=== PATIENT | female | born 1960 | race Caucasian/White ===

== ENCOUNTER → 2021-03-23 15:30 | Outpatient (CLI) | payer OTHER, SELFPAY ==
--- NOTE | 2021-03-23 15:54 | ECG_ITS ---
APPROVED REPORT Exam: Resting ECG HR:66 bpm ECG Measurements Heart Rate 66 AXES AZ 154 P 31 QRSd 80 QRS -5 QT 416 T 24 QTc 436 Conclusion Normal sinus rhythm Minimal voltage criteria for LVH, may be normal variant Borderline ECG Electronically signed by : Nico Morgan MD 03/24/2021 21:18:24
[2021-03-23 16:23] LABS: Basophils # 0.1 K/mm3 (0-0.2); Basophils % 1.4 % (0.1-2.0); Eosinophils # 0.2 K/mm3 (0.0-0.4); Eosinophils % 2.3 % (0.1-12.0); Hematocrit 42.5 % (37.0-47.0); Hemoglobin 14.2 g/dL (12.2-16.2); Lymphocytes # 2.8 K/mm3 (0.7-4.5); Lymphocytes % 27.5 % (10-50); Mean Corpuscular HGB Conc 33.4 g/dL (31.8-35.4); Mean Platelet Volume 9.2 fl (7.4-10.4); Monocytes # 0.5 K/mm3 (0.1-1.0); Monocytes % 5.2 % (1.7-9.3); Neutrophils # 6.6 K/mm3 (1.8-7.8); Neutrophils % 63.6 % (37.0-80.0); Platelet Count 292 K/mm3 (142-424); Red Blood Count 4.43 M/mm3 (4.20-5.40); Red Cell Distribution Width 13.7 % (11.5-17.5); White Blood Count 10.3 K/mm3 (4.8-10.8)
== END ==
PROVIDERS: Visit Provider Otolaryngology
DX: Z01.812 Encounter for preprocedural laboratory examination (principal); Z11.52 Encounter for screening for COVID-19; U07.1 COVID-19; L98.9 Disorder of the skin and subcutaneous tissue, unspecified; K13.0 Diseases of lips
CPT/HCPCS: 36415; 85025; 93005; C9803; U0003; U0005

== ENCOUNTER 2021-04-22 06:46 | Day surgery (SDC) | payer OTHER, SELFPAY ==
[2021-04-19 11:16] VITALS: BMI 29.1
[2021-04-22 07:13] VITALS: BP 164/78; PULSE 60; RESP 18; TEMP 36.5; O2SAT 97
--- NOTE | 2021-04-22 08:08 | HMH.ANESCL ---
[facility] Anesthesia Checklist - Patient Identification Patient Identification: Arm Band - Structural Data Admitted From: Home Planned Operative Procedure/s: Excision Lower Lip Lesion Consent for Planned Operative Procedure(s) Verified: Yes Verified Documents: Surgical Consent, History and Physical - NPO Status Verified Time NPO: 00:00 - Additional verifications Anesthesia Reactions: No Hx Blood Transfusions: No Blood Transfusion Reaction: No - Airway Assessment C-Spine Mobility Assessed: Yes (mp2) TMJ Mobility Assessed: Yes Dentition: Good Dentition - Neurological Assessment Level of Consciousness: Awake, Alert - Anesthesia Plan Anesthesia Risk discussed: Yes Anesthesia Plan: Verified ASA Class: II Anesthesia Type: MAC [facility] History I have reviewed the patient's past medical history: Yes Medical History: Reports:: Anxiety, Hypertension Denies:: Cancer, Diabetes Mellitus Type 1, Diabetes Mellitus Type 2, Internal Pacemaker, MRSA, Seizures *Have you ever received a pneumonia vaccine?: No *Have you received a flu vaccine this season?: No Other Medical History: Denies: Blood Transfusion Reaction Anesthesia experience/problems:: nac Other Surgeries: Yes: Other. No: Pacemaker Amputation: No Fractures: No - *Social History Last grade of school completed: Advanced degree Smoking Status: Current every day smoker Tobacco Type: cigarettes # Packs/Day (cigarettes): 1 Alcohol Intake: current Alcohol Intake Frequency:: holidays/special occasions only Substance Use Type: denies use *Occupational Status:: employed Housing: house Household Members: none *Travel in the last 8 weeks: None - Psychiatric History Pschychiatric History:: Reports:: Anxiety Family Hx:: Diabetes, Heart Attack
[2021-04-22 09:02] VITALS: BP 165/76; PULSE 66; RESP 18; TEMP 36.3; O2SAT 96
[2021-04-22 09:32] VITALS: BP 156/84; PULSE 56; RESP 18; O2SAT 97
--- NOTE | 2021-04-22 10:36 | HMH.OPNOTE ---
Date of procedure: 04/22/21 Pre-op Diagnosis:: Nonhealing lesion right side of lower lip 2.2 cm Post-op Diagnosis:: 1. Nonhealing lesion right side of lower lip 2.2 cm 2. Malignant neoplasm lower lip right side 2.2 cm Procedure performed:: Excision of malignant neoplasm right side lower lip 2.2 cm with tissue rearrangement Z-plasty repair Surgeon:: Layton Carmen MD BESSEMER CONVERTER OPERATOR:: Wai Patel Anesthesia: MAC Estimated blood loss (mL): 3 Operative findings:: same Operative note:: With the patient under a MAC type of anesthetic the eyes were protected with Steri-Strips and the face was prepped and draped. The lesion was on the right side of the lower lip and the perilesional area was infiltrated with a total of 4 cc of 2% lidocaine containing epinephrine. The lesion was marked out and the radha out measured 2.2 cm in length the markup was incised skin hooks were placed on each side of the radha out and the lesion was mobilized and excised in entirety. It was then submitted for frozen section analysis and reported as a squamous cell carcinoma with clear margins. Bleeding was 3 cc and was stopped with suction cautery. Superior and lateral incisions were made flaps were elevated and a tissue rearrangement Z-plasty repair was done with interrupted 2-0 nylon sutures after Surgicel snow had been placed in the defect and all of the bleeding had been stopped. An excellent repair was obtained. Dermabond was placed on the suture line and a dot dressing was applied the patient tolerated the procedure well and was sent to recovery in good general condition. Condition: stable Disposition: PACU Complications:: none
== END 2021-04-22 09:32 | disposition home or self-care (01) ==
LOC: OR 06:49
PROVIDERS: PCP Family Medicine; Visit Provider Otolaryngology
PROC: (CPT 14060; principal; 2021-04-22 08:15)
DX: C00.1 Malignant neoplasm of external lower lip (principal); I10 Essential (primary) hypertension
CPT/HCPCS: 14060; 96374; 96375

== ENCOUNTER → 2022-03-17 07:06 | Outpatient (CLI) | payer OTHER, SELFPAY ==
[2022-03-17 07:59] LABS: Chloride 105 mmol/L (98-107); Potassium 4.6 mmoL/L (3.5-5.1); Sodium 142 mmol/L (136-145)
[2022-03-17 08:02] LABS: Alanine Aminotransferase 21 U/L (12-78); Albumin Level 4.2 g/dl (3.5-5.0); Albumin/Globulin Ratio 1.4 (1.1-1.8); Alkaline Phosphatase 125 U/L (38-126); Anion Gap 12.6 mEq/L (5-15); Aspartate Amino Transferase 29 U/L (14-36); Bilirubin,Total 0.5 mg/dl (0.2-1.3); Blood Urea Nitrogen 11 mg/dl (7-17); Carbon Dioxide 29 mmol/L (22.0-30.0); Cholesterol 210 mg/dl (140-200); Estimated Glomerular Filt Rate 73 ml/min (>60); GFR (African American) 88 ML/MIN (>60); Total Protein,Serum 7.2 g/dl (6.3-8.2); Triglycerides 263 mg/dl (30-150); VLDL Cholesterol 53 mg/dL (0-40)
[2022-03-17 08:03] LABS: Calcium 9.1 mg/dl (8.4-10.2); Chol/HDL Ratio 4.8 (1-3.5); Glucose 122 mg/dl (74-100); HDL Cholesterol 44 mg/dl (40-60)
[2022-03-17 08:14] LABS: Direct LDL Cholesterol 111.47 mg/dL (100-129)
== END ==
PROVIDERS: PCP Family Medicine; Visit Provider Family Medicine
DX: I10 Essential (primary) hypertension (principal); E78.5 Hyperlipidemia, unspecified
CPT/HCPCS: 36415; 80053; 80061

== ENCOUNTER 2024-09-10 10:40 | Outpatient (CLI) | payer OTHER, SELFPAY ==
--- NOTE | 2024-09-10 10:43 | XR_ITS ---
FINAL REPORT CLINICAL HISTORY: Left knee pain x 3 weeks COMPARISON: None FINDINGS: LEFT KNEE Three views demonstrate no acute fracture or dislocation. Chondrocalcinosis is noted. There is moderate joint space narrowing of the medial compartment. There is no evidence of joint effusion. No acute soft tissue abnormality is seen. IMPRESSION: Degenerative changes without acute bony abnormality. Reviewed, Interpreted and Dictated by Kostas Fam MD Transcribed by Jerrica Shepard Authenticated and [facility]
== END 2024-09-10 23:59 | disposition home or self-care (01) ==
LOC: RAD 10:42
PROVIDERS: PCP Family Medicine; Visit Provider Orthopaedic Surgery
DX: M25.562 Pain in left knee (principal)
CPT/HCPCS: 73562

== ENCOUNTER 2025-01-31 08:39 | Outpatient (CLI) | payer OTHER, SELFPAY ==
--- OUTSIDE RECORDS SUMMARY | 2024-02-15 05:30 | XMS_ITS ---
Author Organization [facility] Address [address] [facility] 36 [facility] [address] [place] [id number] Care Team Providers Care Audit Practice Intern Name Role Phone Carmelo, R Roberto Primary Care Provider Allergies No Known Allergies Results Component Value Reference Range Notes P-Comprehensive Metabolic Pa varsha (CMP) Reviewed date:02/20/2024 08:13:12 AM Interpretation: Performing Lab: Notes/Report: Test performed by [facility] [address] [place] [address] , [address], [place] [address] Andre Swartz MD, Aircraft Worker CLIA: [id number] Sodium 142 135-145 mmol/L Potassium 4.4 3.5-5.3 mmol/L Chloride 104 97-108 mmol/L CO2 27 22-32 mmol/L Glucose 104 65-99 mg/dL BUN 10 8-23 mg/dL Creatinine 0.92 0.50-1.00 mg/dL Calcium 9.4 8.6-10.4 mg/dL eGFR by Creatinine 70 >59 mL/min/1.73m2 Protein 7.2 6.0-8.3 g/dL Albumin 4.4 3.5-5.3 g/dL Alkaline Phosphatase 94 35-121 IU/L ALT (SGPT) 17 <5-47 IU/L AST (SGOT) 19 <5-40 IU/L Bilirubin, Total 0.7 <0.2-1.2 mg/dL A/G Ratio 1.6 1.1-2.5 P-Lipid Panel Reviewed date:02/20/2024 08:13:12 AM Interpretation: Performing Lab: Notes/Report: Test performed by [facility], [address] , [facility] [address], [place] [address] Andre Swartz MD, Aircraft Worker CLIA: [id number] Cholesterol 127 <200 mg/dL Triglycerides 245 <150 mg/dL HDL Cholesterol 43 >39 mg/dL Cholesterol / HDL Ratio 2.95 0.00-4.44 Ratio Non-HDL Cholesterol 84 <130 mg/dL LDL Cholesterol (Calculation) 35 <130 mg/dL LDL Cholesterol Levels* Less than 100 mg/dL Optimal 100 to 129 mg/dL Near Optimal/ Above Optimal 130 to 159 mg/dL Borderline High 160 to 189 mg/dL High 190 mg/dL and above Very High * Categories as recommended by the 2004 ATPIII guidelines LDL/HDL Ratio 0.8 <3.3 Ratio LDL Cholesterol Patient History Test Date: 02/15/2024 LDL Results: 35 Units: mg/dL % Change: - REASON FOR VISIT check up and refill, Needs labs, mammogram, bone density screening, colon cancer screening, & low dose chest CT Medications Medication SIG (Take, Route, Frequency, Duration) Notes Start Date End Date Status Furosemide 40 MG 1 tab(s) orally Two times a day; Duration: 90 days Active Atenolol 50 MG 1 tab(s) orally once a day Active Furosemide 40 MG 1 tab(s) orally Two times a day Active amLODIPine Besy-Benazepril HCl 5-40 MG 1 cap(s) Orally 02/15/2024 Active Citalopram Hydrobromide 20 MG 1 tab(s) orally once a day; Duration: 90 days Active Lisinopril 40 MG 1 tab(s) orally once a day; Duration: 90 days Active Rosuvastatin Calcium 10 mg TAKE ONE TABL ET BY MOUTH EVERY DAY; Duration: 30 Active Rosuvastatin Calcium 10 mg 1 tablet Oral ly Once a day; Duration: 90 days Active Atenolol 50 MG 1 tab(s) orally once a day; Duration: 90 days Active Ondansetron 4 MG 1 tablet on the tong ue and allow to dissolve Orally three times a day as needed 06/16/2023 Active Citalopram Hydrobromide 20 MG 1 tab(s) orally once a day Active Vital Signs Blood pressure systolic 160 mm Hg 02/15/20 24 Blood pressure diastolic 98 mm Hg 024 Heart Rate 73 /min 02/15/2024 Height 66 in 02/15/2024 Weight 197.6 lbs 02/15/2024 BMI 31.89 kg/m2 02/15/2024 Encounters Encounter [facility] Date [facility] [address] [phone] 02/15/2024 R Roberto Rhodes Hypertension I10 ; Generalized anxiety disorder F41.1 ; Dyslipidemia E78.5 and Tobacco use disorder F17.200 Assessments Encounter Date Diagnosis (ICD Code) Assessment Notes Treatment Notes Treatment Clinical Notes Section Notes 02/15/2024 Hypertension (ICD-10 - I10) Monitor blood pressure at home and report persistently elevated readings greater than 140/90 02/15/2024 Generalized anxiety disorder (ICD-10 - F41.1) 02/15/2024 Dyslipidemia (ICD-10 - E78.5) 02/15/2024 Tobacco use disorder (ICD-10 - F17.200) Plan Of Treatment Medication Medication Name Sig Start Date Stop Date Notes Lisinopril 40 MG 1 tab(s) orally once a day Atenolol 50 MG 1 tab(s) orally once a day Furosemide 40 MG 1 tab(s) orally Two times a day amLODIPine Besy-Benazepril H Cl 5-40 MG 1 cap(s) Orally 02/15/2024 Rosuvastatin Calcium 10 mg TAKE ONE TABL ET BY MOUTH EVERY DAY; Duration: 30 Citalopram Hydrobromide 20 MG 1 tab(s) orally once a day Treatment Notes Assessment Notes Hypertension Monitor blood pressu re at home and report persistently elevated readings greater than 140/90 Next Appt Details Follow Up: 6 Months, Reason: Progress Notes * Sadi FERNANDODOB:1960 (64 yo F)Acc No.[id number]:02/15/2024 Progress Notes Patient: Sadi HARDEN Provider: Raleigh Rhodes M.D. :1960 A ge:63 Y S ex:Female Date:02/15/2024 Address:[address] [place], [place] [id number] Subjective: * Chief Complaints: * 1 . Check up and refill. 2. Needs labs, mammogram, bone density screening, colon cancer screening, & low dose chest CT. * HPI: C ardiology: Pt states that she is here for a check up and states that she is doing well. Pt states that she is needing refills today on all her medications. She reports frequent elevated BP readings at [facility]. Denies : Chest Pain. D enies : Short of Breath. D enies : Dizziness. D enies : Palpitations. D enies : Leg Edema. * ROS: D ERMATOLOGY: no R joana. n o H lulu. G ASTROENTEROLOGY: no N ausea. n o V omiting. U ROLOGY: no D ifficulty urinating. n o B lood in urine. 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 * Surgical History: A ppendectomy 1984, Total Hysterectomy 1997, Cholecystectomy 1980. * Family History: F ather: alive 84 yrs, heart issues, stroke. M other: alive 83 yrs, heart issues, diabetes. 1 sister(s) . . Sister with [place]. * Social History: C URRENT TOBACCO USE S moking Status: Patient does smoke, packs per day: 1, number of cigarettes per day: 10, Since age of: 18, Smoking preference: cigarettes. C affeine: yes, frequency: coffee, tea daily. Exercise: no. Home smoke detector use: yes. Alcohol: No. * Medications: T aking Ondansetron 4 MG Tablet Disintegrating 1 tablet on the tongue and allow to dissolve Orally three times a day as needed , Taking Atenolol 50 MG Tablet 1 tab(s) orally once a day , Taking Lisinopril 40 MG Tablet 1 tab(s) orally once a day , Taking Rosuvastatin Calcium 10 mg Tablet 1 tablet Orally Once a day , Taking Citalopram Hydrobromide 20 MG Tablet 1 tab(s) orally once a day , Taking Furosemide 40 MG Tablet 1 tab(s) orally Two times a day , Medication List reviewed and reconciled with the patient * Allergies: N .K.D.A. Objective: * Vitals: W t:197.6, Temp:98.6, BP:160/98, HR:73, Nurse:VALENTIN, Ht: 66, BMI:31.89. * Examination: C ardiology: General Appearance: p leasant, NAD. . H EENT:?unremarkable. C arotid upstroke: n ormal, no bruits. H eart sounds: R RR, no murmurs. M urmur, click , gallop: n one. L ungs: c lear, no rales or wheezes. A bdomen: p ositive BS, soft, nontender. E xtremities: n o leg edema.. Assessment: * Assessment: 1. H ypertension - I10 (Primary) 2 . G eneralized anxiety disorder - F41.1? 3. D yslipidemia - E78.5 4 . T obacco use disorder - F17.200 Plan: * Treatment: Value Reference Range A /G Ratio 1.6 1.1-2.5 - * A lbumin 4.4 3.5-5.3 - g/dL * A lkaline Phosphatase 94 35-121 - IU/L * A LT (SGPT) 17 <5-47 - IU/L * A ST (SGOT) 19 <5-40 - IU/L * B ilirubin, Total 0.7 <0.2-1.2 - mg/dL * B UN 10 8-23 - mg/dL * C alcium 9.4 8.6-10.4 - mg/dL * C hloride 104 97-108 - mmol/L * C O2 27 22-32 - mmol/L * C reatinine 0.92 0.50-1.00 - mg/dL * G lucose 104 H 65-99 - mg/dL * P otassium 4.4 3.5-5.3 - mmol/L * S odium 142 135-145 - mmol/L * P rotein 7.2 6.0-8.3 - g/dL * e GFR by Creatinine 70 >59 - mL/min/1.73m2 * Raleigh Rhodes 02/20/2024 8 :13:02 AM >See phone encounter Notes: Monitor blood pressure at home and report persistently elevated readings greater than 140/90 ?2.?Generalized anxiety disorder? Refill Citalopram Hydrobromide Tablet, 20 MG, 1 tab(s), orally, once a day, 90, Refills 1.? 3.?Dyslipidemia? Refill Rosuvastatin Calcium Tablet, 10 mg, TAKE ONE TABLET BY MOUTH EVERY DAY, 30, 30 Tablet, Refills 1.?LAB: P-Lipid Panel (Collection Date & Time - 02/15/2024 09:15 AM)* Value Reference Range C holesterol / HDL Ratio 2.95 0.00-4.44 - Ratio * C holesterol 127 <200 - mg/dL * H DL Cholesterol 43 >39 - mg/dL * L DL Cholesterol (Calculation) 35 <130 - mg/d L * L DL/HDL Ratio 0.8 <3.3 - Ratio * N on-HDL Cholesterol 84 <130 - mg/dL * T riglycerides 245 H <150 - mg/dL * Raleigh Rhodes 02/20/2024 8 :13:02 AM >See phone encounter * Follow Up: 6 Months * Images: Billing Information: * Visit Code: 37372 Office Visit, Est Pt., Level 4. * Procedure Codes: * Electronic signature of Raleigh Rhodes MD on 01/31/2025 at 08:42 AM EDT Sign off status: Pending * Provider: Raleigh Rhodes M.D. Date: 0 02/15/2024 Generated for Delicia gill/Rain/Jhony on: 0 01/31/2025 08:42 AM EDT History and Physical Notes * HPI (History of Present Illness) Category Sub-Category Detail Notes Category Not es Cardiology Short of Breath Chest Pain Palpitations Dizziness Leg Edema Examination Category Sub-Category Detail Notes Category Not es Cardiology Lungs: clear, no rales or wheezes HEENT: unremarkable Heart sounds: RRR, no murmurs Abdomen: positive BS, soft, n ontender Carotid upstroke: normal, no bruits Extremities: no leg edema. Murmur, click , gallop: none General Appearance: pleasant, NAD.
--- OUTSIDE RECORDS SUMMARY | 2024-12-10 06:30 | XMS_ITS ---
Author Organization [facility] Address [address] [facility] 36 [facility] [address] [place] [id number] Care Team Providers Care Concessions Manager Name Role Phone Carmelo, R Roberto Primary Care Provider Allergies No Known Allergies Results Component Value Reference Range Notes P-Comprehensive Metabolic Pa varsha (CMP) Reviewed date:12/12/2024 08:27:46 AM Interpretation:gluc 104 Performing Lab: Notes/Report: Test performed by [facility], [facility] , [address], [place] [address] Andre Swartz MD, Tobacco Hanger CLIA: [id number] Sodium 139 135-145 mmol/L Potassium 4.3 3.5-5.3 mmol/L Chloride 102 97-108 mmol/L CO2 26 20-32 mmol/L Glucose 104 65-99 mg/dL BUN 16 8-23 mg/dL Creatinine 0.95 0.50-1.00 mg/dL Calcium 9.4 8.6-10.4 mg/dL eGFR by Creatinine 67 >59 mL/min/1.73m2 Protein 7.4 6.0-8.3 g/dL Albumin 4.3 3.5-5.3 g/dL Alkaline Phosphatase 106 35-121 IU/L ALT (SGPT) 18 <5-47 IU/L AST (SGOT) 19 <5-40 IU/L Bilirubin, Total 0.7 <0.2-1.2 mg/dL A/G Ratio 1.4 1.1-2.5 P-Lipid Panel Reviewed date:12/12/2024 08:27:46 AM Interpretation:chol 207, LDL 97 Performing Lab: Notes/Report: Test performed by [facility], [facility] [address] [place] [address] [address], [place] [address] Andre Swartz MD, Tobacco Hanger CLIA: [id number] Cholesterol 207 <200 mg/dL Triglycerides 339 <150 mg/dL HDL Cholesterol 42 >39 mg/dL Cholesterol / HDL Ratio 4.93 0.00-4.44 Ratio Non-HDL Cholesterol 165 <130 mg/dL LDL Cholesterol (Calculation) 97 <130 mg/dL LDL Cholesterol Levels* Less than 100 mg/dL Optimal 100 to 129 mg/dL Near Optimal/ Above Optimal 130 to 159 mg/dL Borderline High 160 to 189 mg/dL High 190 mg/dL and above Very High * Categories as recommended by the 2004 ATPIII guidelines LDL/HDL Ratio 2.3 <3.3 Ratio LDL Cholesterol Patient History Test Date: 02/15/2024 LDL Results: 35 Units: mg/dL % Change: - Test Date: 12/10/2024 LDL Results: 97 Units: mg/dL % Change: +177% REASON FOR VISIT check up, Needs labs, mammogram, bone density screening, colon cancer screening, & low dose chest CT Medications Medication SIG (Take, Route, Frequency, Duration) Notes Start Date End Date Status Rosuvastatin Calcium 10 mg 1 tab daily Active Amoxicillin 875 MG 1 tablet Orally Twic e a day 08/20/2024 Not-Taking Atenolol 50 MG 1 tab(s) orally once a day Active Furosemide 40 MG 1 tab(s) orally Once a day Active amLODIPine Besy-Benazepril HCl 5-40 MG 1 cap(s) Orally daily Active Atenolol 50 mg 1 tablet Orally Once a day; Duration: 15 days Active Lisinopril 40 MG 1 tab(s) orally once a day; Duration: 90 days Not-Takin g Citalopram Hydrobromide 20 MG 1 tab(s) orally once a day; Duration: 90 days Active Rosuvastatin Calcium 10 mg TAKE ONE TABLET BY MOUTH EVERY DAY; Duration: 30 Active amLODIPine Besy-Benazepril HCl 5-40 MG 1 cap(s) Orally once a day; Duration: 15 days Active Citalopram Hydrobromide 20 MG 1 tab(s) orally once a day Active Ondansetron 4 MG 1 tablet on the tong ue and allow to dissolve Orally three times a day as needed 06/16/2023 Active Vital Signs Blood pressure systolic 136 mm Hg 12/11/19 25 Blood pressure diastolic 70 mm Hg 025 Heart Rate 66 /min 12/10/2024 Height 66 in 12/10/2024 Weight 191.4 lbs 12/10/2024 BMI 30.89 kg/m2 12/10/2024 Encounters Encounter Location Date Provider Diagnosis [facility] [address] [facility] [address] [place], [place] [id number] 12/10/2024 Raleigh Rhodes Hypertension I10 ; Generalized anxiety disorder F41.1 ; Dyslipidemia E78.5 and Tobacco use disorder F17.200 Assessments Encounter Date Diagnosis (ICD Code) Assessment Notes Treatment Notes Treatment Clinical Notes Section Notes 12/10/2024 Hypertension (ICD-10 - I10) Monitor blood pressure at home and report persistently elevated readings greater than 140/90 12/10/2024 Generalized anxiety disorder (ICD-10 - F41.1) 12/10/2024 Dyslipidemia (ICD-10 - E78.5) 12/10/2024 Tobacco use disorder (ICD-10 - F17.200) Plan Of Treatment Medication Medication Name Sig Start Date Stop Date Notes Rosuvastatin Calcium 10 mg 1 tab daily Atenolol 50 MG 1 tab(s) orally once a day Furosemide 40 MG 1 tab(s) orally Once a day amLODIPine Besy-Benazepril H Cl 5-40 MG 1 cap(s) Orally daily Citalopram Hydrobromide 20 MG 1 tab(s) orally once a day Treatment Notes Assessment Notes Hypertension Monitor blood pressu re at home and report persistently elevated readings greater than 140/90 Next Appt Details Follow Up: 6 Months, Reason: Progress Notes * Sadi FERNANDODOB:1960 (64 yo F)Acc No.[id number]:12/10/2024 Progress Notes Patient: Sadi HARDEN Provider: Raleigh Rhodes M.D. :1960 A ge:64 Y S ex:Female Date:12/10/2024 Address:[address] [place] [id number] Subjective: * Chief Complaints: * 1 . Check up. 2. Needs labs, mammogram, bone density screening, colon cancer screening, & low dose chest CT. * HPI: H PI: 64 year old female presents with c/o Patient is here today for?Pt is here today for a check and fasting labs. Pt sts she does need refills on her medications.? * ROS: D ERMATOLOGY: no R joana. n o H lulu. G ASTROENTEROLOGY: no N ausea. n o V omiting. U ROLOGY: no D ifficulty urinating. n o B lood in urine. 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 * Surgical History: A ppendectomy 1984, Total Hysterectomy 1997, Cholecystectomy 1980. * Family History: F ather: alive 85 yrs, heart issues, stroke. M other: alive 84 yrs, heart issues, diabetes. 1 sister(s) . . Sister with [place]. * Social History: C URRENT TOBACCO USE [...] times a day as needed , Taking Citalopram Hydrobromide 20 MG Tablet 1 tab(s) orally once a day , Taking Furosemide 40 MG Tablet 1 tab(s) orally Two times a day , Taking Citalopram Hydrobromide 20 MG Tablet 1 tab(s) orally once a day , Taking Rosuvastatin Calcium 10 mg Tablet TAKE ONE TABLET BY MOUTH EVERY DAY , Taking amLODIPine Besy-Benazepril HCl 5-40 MG Capsule 1 cap(s) Orally once a day , Taking Atenolol 50 mg Tablet 1 tablet Orally Once a day , Not-Taking Lisinopril 40 MG Tablet 1 tab(s) orally once a day , Not-Taking Amoxicillin 875 MG Tablet 1 tablet Orally Twice a day , Medication List reviewed and reconciled with the patient * Allergies: N .K.D.A. Objective: * Vitals: W t: 191.4, Temp: 98.6, BP: 136/70, HR: 66, Nurse: alex, Ht: 66, BMI:30.89. * Examination: C ardiology: General Appearance: p [...] Treatment: Value Reference Range A /G Ratio 1.4 1.1-2.5 - * A lbumin 4.3 3.5-5.3 - g/dL * A lkaline Phosphatase 106 35-121 - IU/L * A LT (SGPT) 18 <5-47 - IU/L * A ST (SGOT) 19 <5-40 - IU/L * B ilirubin, Total 0.7 <0.2-1.2 - mg/dL * B UN 16 8-23 - mg/dL * C alcium 9.4 8.6-10.4 - mg/dL * C hloride 102 97-108 - mmol/L * C O2 26 20-32 - mmol/L * C reatinine 0.95 0.50-1.00 - mg/dL * G lucose 104 H 65-99 - mg/dL * P otassium 4.3 3.5-5.3 - mmol/L * S odium 139 135-145 - mmol/L * P rotein 7.4 6.0-8.3 - g/dL * e GFR by Creatinine 67 >59 - mL/min/1.73m2 * Raleigh Rhodes 12/12/2024 0 8:27:35 AM EDT > See phone encounter Notes: Monitor blood pressure at home and report persistently elevated readings greater than 140/90 ?2.?Generalized anxiety disorder? Refill Citalopram Hydrobromide Tablet, 20 MG, 1 tab(s), orally, once a day, 90, Refills 1.? 3.?Dyslipidemia? Refill Rosuvastatin Calcium Tablet, 10 mg, 1 tab, daily, 90, Refills 1.?LAB: P-Lipid Panel (Collection Date & Time - 12/10/2024 09:56 AM)?chol 207, LDL 97* Value Reference Range C holesterol / HDL Ratio 4.93 H 0.00-4.44 - Ratio * C holesterol 207 H <200 - mg/dL * H DL Cholesterol 42 >39 - mg/dL * L DL Cholesterol (Calculation) 97 <130 - mg/d L * L DL/HDL Ratio 2.3 <3.3 - Ratio * N on-HDL Cholesterol 165 H <130 - mg/dL * T riglycerides 339 H <150 - mg/dL * Raleigh Rhodes 12/12/2024 0 8:27:35 AM EDT > See phone encounter * Procedure Codes: G 8950 PREHTN/HTN BP DOC INDCD F/U DOC, G8752 MOST RECENT SYSTOLIC BP < 140MM HG, G8754 MOST RECENT DIASTOLIC BP < 90MM HG * Follow Up: 6 Months * Images: Billing Information: * Visit Code: 24464 Office Visit, Est Pt., Level 3. * Procedure Codes: G8950 PREHTN/HTN BP DOC INDCD F/U DOC. G8752 MOST RECENT SYSTOLIC BP < 140MM HG. G8754 MOST RECENT DIASTOLIC BP < 90MM HG. * Electronic signature of Raleigh Rhodes MD on 01/31/2025 at 08:42 AM EDT Sign off status: Pending * Provider: Raleigh Rhodes M.D. Date: 0 12/10/2024 Generated for Delicia gill/Rain/eTransmitting on: 0 01/31/2025 08:42 AM EDT History and Physical Notes * HPI (History of Present Illness) Category Sub-Category Detail Notes Category Not es HPI Patient is here today for Pt is here today for a check and fasting labs. Pt sts she does need refills on her medications Examination Category Sub-Category Detail Notes Category Not es Cardiology Lungs: clear, no rales or wheezes HEENT: unremarkable Heart sounds: RRR, no murmurs Abdomen: positive BS, soft, n ontender Carotid upstroke: normal, no bruits Extremities: no leg edema. Murmur, click , gallop: none General Appearance: pleasant, NAD.
--- OUTSIDE RECORDS SUMMARY | 2024-12-24 09:43 | XMS_ITS ---
[facility] [address] [facility] 36 [facility] [address] [place] [id number] Care Team Providers Care Electric Razor Assembler Name Role Phone Raleigh Rhodes Primary Care Provider REASON FOR VISIT due sofia, col, BD and CT scan Encounters Encounter Location Date Provider [place] [address] [facility] 36 [facility] [address] [place] [id number] 12/24/2024 Raleigh Rhodes Screening for osteoporosis Z13.820 and Menopause Z78.0 Assessments Encounter Date Diagnosis (ICD Code) Assessment Notes Treatment Notes Treatment Clinical Notes Section Notes 12/24/2024 Screening for osteoporosis (ICD-10 - Z13.820) 12/24/2024 Menopause (ICD-10 - Z78.0) Plan Of Treatment Pending Test Test Name Order Date Bone density 12/24/2024 Progress Notes * Sadi FERNANDODOB:1960 (64 yo F)Acc No.[id number]:12/24/2024 Patient: Sadi HARDEN :1960 A ge:64 Y S ex:Female Address:[address], [place], [address] Subjective: * Chief Complaints: * d ue sofia, col, BD and CT scan * Medical History: * Surgical History: * Hospitalization/Major Diagno stic Procedure: * Medications: Objective: * Vitals: * Physical Examination: Assessment: * Assessment: 1. S creening for osteoporosis - Z13.820 (Primary) 2 . M enopause - Z78.0? Plan: * Treatment: 2.?Menopause?Imaging: Bone density* Kaur Candelaria 01/15/2025 12:06 :46 PM EDT > sent to Adilia for referral to [facility] * Procedure Codes: * true * Date: Generated for Delicia gill/Rain/Brettitting on: 0 01/31/2025 08:41 AM EDT
--- OUTSIDE RECORDS SUMMARY | 2025-01-31 08:41 | XMS_ITS | Patient Health Record ---
Author Organization [facility] [address] [facility] 36 [facility] [address] [place] [id number] Care Team Providers Care Financial Services Rep Name Role Phone Raleigh Rhodes Primary Care Provider Allergies No Known Allergies Results Component Value Reference Range Notes P-Lipid Panel Reviewed date:12/12/2024 08:27:46 AM Interpretation:chol 207, LDL 97 Performing Lab: Notes/Report: Test performed by [facility] [address] , [address], [place] [address] Andre Swartz MD, Crane Oiler CLIA: [id number] Cholesterol 207 <200 mg/dL Triglycerides 339 <150 [...] Results: 97 Units: mg/dL % Change: +177% P-Comprehensive Metabolic Pa varsha (CMP) Reviewed date:12/12/2024 08:27:46 AM Interpretation:gluc 104 Performing Lab: Notes/Report: Test performed by [facility] , [facility], [place] [address] Andre Swartz MD, Crane Oiler CLIA: [id number] Sodium 139 135-145 mmol/L Potassium 4.3 3.5-5.3 [...] 0.7 <0.2-1.2 mg/dL A/G Ratio 1.4 1.1-2.5 P-Comprehensive Metabolic Pa varsha (CMP) Reviewed date:02/20/2024 08:13:12 AM Interpretation: Performing Lab: Notes/Report: Test performed by [facility] [address] [place] [address] , [address], [place] [address] Andre Swartz MD, Crane Oiler CLIA: [id number] Sodium 142 135-145 mmol/L Potassium 4.4 3.5-5.3 [...] Interpretation: Performing Lab: Notes/Report: Test performed by [facility] [address] [place] [address] , [address], [place] [address] Andre Swartz MD, Crane Oiler CLIA: [id number] Cholesterol 127 <200 mg/dL Triglycerides 245 <150 [...] Results: 35 Units: mg/dL % Change: - Reason For Referral No Information Medications Medication SIG (Take, Route, Frequency, Duration) Notes Start Date End Date Status Rosuvastatin Calcium 10 mg 1 tab daily Active Amoxicillin 875 MG 1 tablet Orally Twic e a day 08/20/2024 Not-Taking Atenolol 50 MG 1 tab(s) orally once a day Active Atenolol 50 mg 1 tablet Orally Once a day; Duration: 15 days Active Lisinopril 40 MG 1 tab(s) orally once a day; Duration: 90 days Not-Takin g Citalopram Hydrobromide 20 MG 1 tab(s) orally once a day Active Citalopram Hydrobromide 20 MG 1 tab(s) orally once a day; Duration: 90 days Active Furosemide 40 MG 1 tab(s) orally Once a day Active amLODIPine Besy-Benazepril HCl 5-40 MG 1 cap(s) Orally daily Active Ondansetron 4 MG 1 tablet on the tong ue and allow to dissolve Orally three times a day as needed 06/16/2023 Active Rosuvastatin Calcium 10 mg TAKE ONE TABLET BY MOUTH EVERY DAY; Duration: 30 Active amLODIPine Besy-Benazepril HCl 5-40 MG 1 cap(s) Orally once a day; Duration: 15 days Active Immunizations Vaccine Route Administration Date Status Comme nts COVID 19 Pfizer Unknown 06/03/2020 Administered COVID 19 Pfizer Unknown 06/24/2020 Administered COVID 19 Pfizer Unknown 02/11/2021 Administered Problems Problem Type SNOMED Code ICD Code Onset Dates Problem Status W/U Status Risk Notes Problem Hypertension (42318823) Hypertension (I10) Active confirmed Problem Generalized anxiety disorder (39454864) Generalized anxiety disorder (F41.1) Active confirmed Problem Localized, primary osteoarthritis of the hand (729046853) Primary osteoarthritis, right hand (M19.041) Active confirmed Problem Gastroesophageal reflux disease without esophagitis (949553264) Gastroesophageal reflux disease without esophagitis (K21.9) Active confirmed Problem Dyslipidemia (139159168) Dyslipidemia (E78.5) Active confirmed Problem Localized, primary osteoarthritis of the hand (888224587) Primary osteoarthritis of left hand (M19.042) Active confirmed Problem Tobacco use (032892661) Tobacco use disorder (F17.200) Active confirmed Problem Squamous cell carcinoma of skin of lower extremity (469844439) Squamous cell carcinoma of skin of right lower extremity (C44.722) Active confirmed Vital Signs Heart Rate 66 /min 12/10/2024 Blood pressure diastolic 70 mm Hg 12/10/2024 Height 66 in 12/10/2024 Blood pressure systolic 136 mm Hg 12/10/2024 Weight 191.4 lbs 12/10/2024 BMI 30.89 kg/m2 12/10/2024 Encounters Encounter Location Date Provider Diagnosis [facility] [address] [facility] [address] [place] [phone] 02/15/2024 R Roberto Carmelo Hypertension I10 ; Generalized anxiety disorder F41.1 ; Dyslipidemia E78.5 and Tobacco use disorder F17.200 [facility] [address] [place], [place] [id number] 12/10/2024 R Roberto Carmelo Hypertension I10 ; Generalized anxiety disorder F41.1 ; Dyslipidemia E78.5 and Tobacco use disorder F17.200 [facility] [address] [place], [place] [id number] 02/20/2024 R Roberto Carmelo [facility] [address] [place], [place] [id number] 08/20/2024 R Roberto Rhodes [facility] [address] [facility] [address] [place] [id number] 12/03/2024 R Roberto Quickt [facility] [address] [facility] [address] [place] [id number] 12/12/2024 R Roberto Quickt [facility] [address] [facility] [address] [place] [id number] 12/24/2024 R Roberto Quickt Screening for osteoporosis Z13.820 and Menopause Z78.0 Assessments Encounter Date Diagnosis (ICD Code) Assessment Notes Treatment Notes Treatment Clinical Notes Section Notes 02/15/2024 Hypertension (ICD-10 - I10) Monitor blood pressure at home and report persistently elevated readings greater than 140/90 02/15/2024 Generalized anxiety disorder (ICD-10 - F41.1) 12/10/2024 Hypertension (ICD-10 - I10) Monitor blood pressure at home and report persistently elevated readings greater than 140/90 12/24/2024 Screening for osteoporosis (ICD-10 - Z13.820) 12/24/2024 Menopause (ICD-10 - Z78.0) 12/10/2024 Generalized anxiety disorder (ICD-10 - F41.1) 02/15/2024 Dyslipidemia (ICD-10 - E78.5) 02/15/2024 Tobacco use disorder (ICD-10 - F17.200) 12/10/2024 Dyslipidemia (ICD-10 - E78.5) 12/10/2024 Tobacco use disorder (ICD-10 - F17.200) Plan Of Treatment Pending Test Test Name Order Date Bone density 12/24/2024 Insurance Providers Payer Name Payer Address Payer Phone Subscriber Number Group Number Insured Name Patient Relationship to Insured Coverage Start Date Coverage End Date [employer] [facility] [place] [id number] [facility] [place] [id number] Sadi Fernando Self - patient is the insured Medications Administered Medication Instructions Date of Administration Dosage Notes Depo- Medrol 40 mg/ml 04/21/2015 1.5 mL Medical (General) History Medical History History ICD Code Hypertension RT Eye Stroke, 2012 - Head CT Normal Arthritis GERD Hyperlipidemia Tobacco Abuse Declines health maintenance screening - 02/2022; 01/2023; 02/2023; 12/2024 Surgical History Surgery Date(Month/Year) Appendectomy 1984 Total Hysterectomy 1997 Cholecystectomy 1981
--- OUTSIDE RECORDS SUMMARY | 2025-01-31 08:42 | XMS_ITS | Clinical Summary ---
Author Organization [facility] Address [address] [place] [address] Care Team Providers Care Molding Cutter Name Role Phone Mike Rhodes MD Primary Care Provider [phone] Allergies No known active allergies Medications atenolol (Tenormin) 50 MG tablet Take 1 tablet (50 mg) by mouth 1 (one) time each day. 02/28/2023 Active citalopram (CeleXA) 20 MG tablet Take 1 tablet (20 mg) by mouth 1 (one) time each day. 02/06/2023 Active furosemide (Lasix) 40 MG tablet Take 1 tablet (40 mg) by mouth 2 (two) times a day. 02/06/2023 Active lisinopril 40 MG tablet Take 1 tablet (40 mg) by mouth 1 (one) time each day. 02/28/2023 Active rosuvastatin (Crestor) 10 MG tablet Take 1 tablet (10 mg) by mouth 1 (one) time each day. 02/06/2023 Active Active Problems No known active problems Social History Tobacco Use Types Packs/Day Years Used Date Smoking Tobacco: Never Assessed Comments Unknown Sex and Gender Information Value Date Recorded Sex Assigned at Not on file Legal Sex Female 8:20 PM EDT Gender Identity Not on file Sexual Orientation Not on file Last Filed Vital Signs Vital Sign Reading Time Taken Comments Blood Pressure 170/98 04/14/2023 7:27 AM EDT Pulse - - Temperature - - Respiratory Rate - - Oxygen Saturation - - Inhaled Oxygen Concentration - - Weight 81.6 kg (180 lb) 04/14/2023 7:27 AM EDT Height 170.2 cm (5' 7 ) 04/14/2023 7:27 AM EDT Body Mass Index 28.19 04/14/2023 7:27 AM EDT Plan of Treatment Health Maintenance Due Date Last Done Comments [facility]-Depression Screening 1960 [facility]-HIV Screening 1960 [facility]-Hepatitis C Screening 1960 [facility]-Infant/Child/Adol SDOH Screenings 1960 [facility]- SDOH Screenings 1978 [facility]-Adult SDOH Screenings 1978 [facility]-DTaP,Tdap,and Td Vaccines (1 - Tdap) 11/06/1979 [facility]-Pap Smear 1981 [facility]-Cervical Cancer Screening 1990 [facility]-HPV/Cotest 1990 CT Colonography 2005 Colonoscopy 2005 FIT-DNA 2005 FIT 2005 FOBT 2005 Sigmoidoscopy 2005 [facility]-Colorectal Cancer Screening 2005 [facility]-Breast Cancer Screening 2010 [facility]-Pneumococcal Vaccine: 50+ Years (1 of 1 - PCV) 2010 [facility]-Zoster Vaccines (1 of 2) 2010 [id number] Vaccine ( season) 2024 04/05/2022, 09/23/2021, 02/11/2021, Additional history exists [facility]-Influenza Vaccine (#1) 2025 [facility]-RSV Vaccine: 60+ Years or (1 - 1-dose 75+ series) 11/06/2035 [facility]-Obesity Intervention Completed 04/14/2023 HPV Vaccines Aged Out No longer eligi ble based on patient's age to complete this topic [facility]-HIB Vaccines Aged Out No longer e ligible based on patient's age to complete this topic [facility]-Hepatitis A Vaccines Aged Out No longer eligible based on patient's age to complete this topic [facility]-IPV Vaccines Aged Out No longer e ligible based on patient's age to complete this topic [facility]-Rotavirus Vaccines Aged Out No lo nger eligible based on patient's age to complete this topic [place] [id number] [facility] MED[facility]ID Care Teams Molding Cutter Relationship Specialty Start Date End Date Mike Rhodes MD [address] [place] [id number] PCP - General 04/14/23
--- NOTE | 2025-01-31 08:44 | XR_ITS ---
FINAL REPORT CLINICAL HISTORY: SCREENING COMPARISON: None FINDINGS: Using L1-4, the bone mineral density of the spine is 0.929 g/cm2, corresponding to T-score of -1.1. Using the left hip, the bone mineral density of the femoral neck is 0.680 g/cm2, corresponding to a T-score of -1.5. Using the right hip, the bone mineral density of the femoral neck is 0.795 g/cm2, corresponding to a T-score of -1.2. NOTE: T-score: Standard deviation compared with peak bone mass of young adult mean. *Following the recommendations of the International Society of Bone densitometry, classification of hip BMD is based on the lower of two T-scores; total hip or femoral neck. IMPRESSION: Diminished bone mineral density of the bilateral hips and lumbar spine corresponding to osteopenia. Reviewed, Interpreted and Dictated by Jules Tran MD Transcribed by Funmi Her Authenticated and [facility]
== END 2025-01-31 23:59 | disposition home or self-care (01) ==
LOC: RAD 08:40
PROVIDERS: PCP Family Medicine; Visit Provider Family Medicine
DX: M85.852 Other specified disorders of bone density and structure, left thigh (principal); M85.851 Other specified disorders of bone density and structure, right thigh; M85.88 Other specified disorders of bone density and structure, other site; Z13.820 Encounter for screening for osteoporosis; Z78.0 Asymptomatic menopausal state
CPT/HCPCS: 77080